=== PATIENT | female | born 1980 | race Caucasian/White ===

== ENCOUNTER 2016-09-21 08:43 | Emergency (ER) | payer BC ==
--- NOTE | 2016-09-21 09:13 | ER Document Report ---
ED General - General Chief Complaint: Nausea Stated Complaint: FLU SYMPTOMS Time Seen by Provider: 09/21/16 09:12 Mode of Arrival: Wheelchair Information source: Patient Notes: 35 yo female pregant, c/o nausea and vomiting. LMP 08/05/16. No vaginal discharge or odor. No dysuria frequency or urgency. No diarrhea. No pelvic or abdominal pain. No vaginal bleeding. - Related Data Allergies/Adverse Reactions: No Known Allergies Allergy (Unverified 09/21/16 09:45) Past Medical History - General Information source: Patient - Social History Smoking Status: Never Smoker Frequency of alcohol use: None Drug Abuse: None Lives with: Spouse/Significant other Family History: Reviewed & Not Pertinent - Medical History Medical History: Negative Renal/ Medical History: Denies: Hx Peritoneal Dialysis Surgical Hx: Negative Review of Systems - Review of Systems Constitutional: No symptoms reported EENT: No symptoms reported Cardiovascular: No symptoms reported Respiratory: No symptoms reported Gastrointestinal: See HPI Genitourinary: No symptoms reported Female Genitourinary: No symptoms reported Musculoskeletal: No symptoms reported Skin: No symptoms reported Hematologic/Lymphatic: No symptoms reported Neurological/Psychological: No symptoms reported Physical Exam - Vital signs Vitals: Temp Pulse Resp BP Pulse Ox 97.4 F 72 25 H 114/98 H 100 09/21/16 08:44 09/21/16 08:44 09/21/16 08:44 09/21/16 08:44 09/21/16 08:44 Interpretation: Normal - General General appearance: Appears well, Alert In distress: None - HEENT Head: Normocephalic, Atraumatic Eyes: Normal Conjunctiva: Normal Pupils: PERRL Mucous membranes: Dry Pharynx: Normal Neck: Supple. No: Lymphadenopathy - Respiratory Respiratory status: No respiratory distress Chest status: Nontender Breath sounds: Normal Chest palpation: Normal - Cardiovascular Rhythm: Regular Heart sounds: Normal auscultation Murmur: No - Abdominal Inspection: Normal Distension: No distension Bowel sounds: Normal Tenderness: Nontender. No: Tender Organomegaly: No organomegaly - Back Back: Normal, Nontender. No: CVA tenderness - Extremities General upper extremity: Normal inspection, Nontender, Normal color, Normal ROM , Normal temperature General lower extremity: Normal inspection, Nontender, Normal color, Normal ROM , Normal temperature, Normal weight bearing. No: Tao's sign - Neurological Neuro grossly intact: Yes Cognition: Normal Orientation: AAOx4 [place] Coma Scale Eye Opening: Spontaneous [place] Coma Scale Verbal: Oriented [place] Coma Scale Motor: Obeys Commands [place] Coma Scale Total: 15 Speech: Normal Motor strength normal: LUE, RUE, LLE, RLE Sensory: Normal - Psychological Associated symptoms: Normal affect, Normal mood - Skin Skin Temperature: Warm Skin Moisture: Dry Skin Color: Normal Skin irregularity: negative: Rash Course - Re-evaluation Re-evalutation: 09/21/16 11:30 Quantitative status is consistent with her LMP and expected 7 week . She has no pelvic pain or vaginal bleeding. Patient is drinking christine gayatri and feels a lot better. Other labs are negative except for co2 of 18 but she was hyperventilating when she came in. - Vital Signs Vital signs: Temp Pulse Resp BP Pulse Ox 97.8 F 72 23 H 98/61 L 99 09/21/16 11:51 09/21/16 08:44 09/21/16 10:31 09/21/16 11:51 09/21/16 11:51 - Laboratory Result Diagrams: 09/21/16 09:27 09/21/16 09:27 Laboratory results interpreted by me: 09/21/16 09/21/16 09/21/16 09:27 09:27 10:56 WBC 11.7 H Seg Neutrophils % 87.5 H Lymphocytes % 9.7 L Monocytes % 2.3 L Absolute Neutrophils 10.2 H Carbon Dioxide 18 L Calcium 10.5 H Direct Bilirubin 0.5 H Total Protein 8.4 H Beta HCG, Quant 76105.00 H Urine Glucose (UA) 50 H Urine Ketones 80 H Urine Ascorbic Acid 40 H Discharge - Discharge Clinical Impression: Nausea, early , Dehydration Condition: Good Disposition: HOME, SELF-CARE Instructions: Antinausea Medication ([facility]), Intravenous (IV) Fluids ([facility]), ([facility]), [facility] ([facility]), [facility] [place] Additional Instructions: plenty of fluids to er if worse continue to eat and drink even if you are nauseated see health department and obgyn for this . Please complete the patient satisfaction survey if you get one, and return it.. If you do not receive a survey, then you can go to the [facility] website, [email or web address] and place your comments about your very good care. Thank you very much. It was a pleasure being your medical provider today. Prescriptions: Doxylamine/Pyridoxine HCl [Kelsey Munoz 10-10 mg Tablet] 1 each PO QHS #30 tablet. Promethazine HCl [Phenergan 25 mg Supp.rect] 25 mg [place] Q4HP PRN #24 supp.rect PRN Reason: Promethazine HCl [Phenergan 25 mg Tablet] 25 mg PO Q4HP PRN #30 tablet PRN Reason: Forms: Return to Work
[2016-09-21] MEDS ORDERED: NORMAL SALINE 1000 ML 1,000 ML IV ONE ×3 (09:23→10:39)
[2016-09-21] MEDS ORDERED: DIPHENHYDRAMINE HCL 50 MG/ML VIAL IV ONE ×2 (09:23→09:47)
[2016-09-21] MEDS ORDERED: METOCLOPRAMIDE HCL INJ/PF 10 MG/2 ML SDV IV ONE (09:47)
[2016-09-21 09:49] LABS: ABSOLUTE LYMPHOCYTES (AUTO) 1.1 10^3/uL (0.5-4.7); ABSOLUTE MONOCYTES (AUTO) 0.3 10^3/uL (0.1-1.4); ABSOLUTE NEUT (AUTO) 10.2 10^3/uL (1.7-8.2); BASOPHILS % (AUTO) 0.3 % (0-2); EOSINOPHILS % (AUTO) 0.2 % (0-6); HEMATOCRIT 39.3 % (36.0-47.0); HEMOGLOBIN 13.5 g/dL (12.0-15.5); HGB HCT DIFFERENCE 1.2; LYMPHOCYTES % (AUTO) 9.7 % (13-45); MEAN CORPUSCULAR HEMOGLOBIN 30.2 pg (27.0-33.4); MEAN CORPUSCULAR HGB CONC 34.3 g/dL (32.0-36.0); MEAN CORPUSCULAR VOLUME 88 fl (80-97); MONOCYTES % (AUTO) 2.3 % (3-13); RED BLOOD COUNT 4.45 10^6/uL (3.72-5.28); SEGMENTED NEUTROPHILS % (AUTO) 87.5 % (42-78); WHITE BLOOD COUNT 11.7 10^3/uL (4.0-10.5)
[2016-09-21 10:08] LABS: ALANINE AMINOTRANSFERASE 34 U/L (9-52); ALKALINE PHOSPHATASE 48 U/L (38-126); ANION GAP 14 (5-19); ASPARTATE AMINO TRANSFERASE 29 U/L (14-36); BILIRUBIN,DIRECT 0.5 mg/dL (0.0-0.4); BLOOD UREA NITROGEN 10 mg/dL (7-20); CALCIUM 10.5 mg/dL (8.4-10.2); CARBON DIOXIDE 18 mmol/L (22-30); CHLORIDE 107 mmol/L (98-107); CREATININE RESULT 0.53 mg/dL (0.52-1.25); GLUCOSE 101 mg/dL (75-110); LIPASE 76.5 U/L (23-300); SODIUM 139.4 mmol/L (137-145); TOTAL PROTEIN 8.4 g/dL (6.3-8.2)
[2016-09-21 11:10] LABS: APPEARANCE,URINE CLEAR; BILIRUBIN,URINE NEGATIVE (NEGATIVE); GLUCOSE, URINE 50 mg/dL (NEGATIVE); KETONES,URINE 80 mg/dL (NEGATIVE); LEUKOCYTE ESTERASE,URINE NEGATIVE (NEGATIVE); NITRITE,URINE NEGATIVE (NEGATIVE); PROTEIN,URINE NEGATIVE (NEGATIVE); URINE SPECIFIC GRAVITY 1.014; UROBILINOGEN,URINE NEGATIVE mg/dL (<2.0)
[2016-09-21 11:30] LABS: URINE BARBITURATES SCREEN NEGATIVE; URINE METHADONE SCREEN NEGATIVE; URINE OPIATES LOW NEGATIVE; URINE PHENCYCLIDINE SCREEN NEGATIVE
[2016-09-21 12:18] VITALS: BP 98/61
== END 2016-09-21 11:55 | disposition home or self-care (01) ==
LOC: ER 08:43
DX: O26.891 Other specified pregnancy related conditions, first trimester (principal); O21.9 Vomiting of pregnancy, unspecified; O99.281 Endocrine, nutritional and metabolic diseases complicating pregnancy, first trimester; E86.0 Dehydration; Z3A.01 Less than 8 weeks gestation of pregnancy
CPT/HCPCS: 99283; 96374; 96375; 36415; 87086; 80307 ×2; 84702; 83690; 85025; 80053; 81001; 87804; 71020; J1200; J2765; J7030

== ENCOUNTER 2016-10-20 09:09 | Observation (INO) | payer BC ==
[2016-10-20] MEDS: ONDANSETRON 4 MG TAB.RAPDIS PO PRN (12:10)
[2016-10-20] MEDS ORDERED: METOCLOPRAMIDE HCL INJ/PF 10 MG/2 ML SDV IV PRN ×2 (13:59→14:03)
[2016-10-20] MEDS: NORMAL SALINE 1000 ML 1,000 ML with THIAMINE HCL 100 MG, MVI, ADULT NO.1 WITH VIT K 10 ... IV SCH ×5 (17:21)
--- NOTE | 2016-10-20 17:36 | RADIOLOGY REPORT (SQ) ---
EXAM DESCRIPTION: U/S ABDOMEN LTD W/DOPPLER COMPLETED DATE/TIME: 10/20/2016 5:25 pm REASON FOR STUDY: right upper quadrant pain COMPARISON: None. TECHNIQUE: Dynamic and static grayscale images acquired of the abdomen and recorded on PACS. Additio nal selected color Doppler and spectral images recorded. LIMITATIONS: None. FINDINGS: PANCREAS: No masses. Visualized pancreatic duct normal caliber. LIVER: No masses. Echotexture normal. LIVER VASCULATURE: Normal directional flow of the main portal vein and hepatic veins. GALLBLADDER: No stones. Normal wall thickness. No pericholecystic fluid. ULTRASOUND-DETECTED GRAF'S SIGN: Negative. INTRAHEPATIC DUCTS AND COMMON DUCT: CBD and intrahepatic ducts normal caliber. No filling defects. INFERIOR VENA CAVA: Normal flow. AORTA: No aneurysm. RIGHT KIDNEY: Normal size. Normal echogenicity. No solid or suspicious masses. No hydronephrosis. No calcifications. PERITONEAL AND RIGHT PLEURAL SPACE: No ascites or effusions. OTHER: No other significant findings. IMPRESSION: NORMAL RIGHT UPPER QUADRANT ULTRASOUND. TECHNICAL DOCUMENTATION: JOB ID: [id number] [employer]- All Rights Reserved
[2016-10-20 17:42] LABS: ABSOLUTE BASOPHILS # (AUTO) 0.1 10^3/uL (0.0-0.2); ABSOLUTE EOSINOPHILS # (AUTO) 0.1 10^3/uL (0.0-0.6); ABSOLUTE LYMPHOCYTES (AUTO) 3.1 10^3/uL (0.5-4.7); ABSOLUTE MONOCYTES (AUTO) 0.8 10^3/uL (0.1-1.4); ABSOLUTE NEUT (AUTO) 8.7 10^3/uL (1.7-8.2); BASOPHILS % (AUTO) 0.5 % (0-2); EOSINOPHILS % (AUTO) 0.5 % (0-6); HEMATOCRIT 40.1 % (36.0-47.0); HEMOGLOBIN 13.5 g/dL (12.0-15.5); HGB HCT DIFFERENCE 0.4; LYMPHOCYTES % (AUTO) 24.7 % (13-45); MEAN CORPUSCULAR HEMOGLOBIN 30.4 pg (27.0-33.4); MEAN CORPUSCULAR HGB CONC 33.6 g/dL (32.0-36.0); MEAN CORPUSCULAR VOLUME 90 fl (80-97); RED BLOOD COUNT 4.43 10^6/uL (3.72-5.28); RED CELL DISTRIBUTION WIDTH 13.1 % (11.5-14.0); SEGMENTED NEUTROPHILS % (AUTO) 68.3 % (42-78); WHITE BLOOD COUNT 12.7 10^3/uL (4.0-10.5)
[2016-10-20 18:01] LABS: ALANINE AMINOTRANSFERASE 31 U/L (9-52); ALBUMIN 3.9 g/dL (3.5-5.0); ALKALINE PHOSPHATASE 36 U/L (38-126); AMYLASE 42 U/L (30-110); ANION GAP 11 (5-19); ASPARTATE AMINO TRANSFERASE 20 U/L (14-36); BILIRUBIN,DIRECT 0.2 mg/dL (0.0-0.4); BILIRUBIN,TOTAL 0.9 mg/dL (0.2-1.3); BLOOD UREA NITROGEN 6 mg/dL (7-20); CALCIUM 9.5 mg/dL (8.4-10.2); CARBON DIOXIDE 23 mmol/L (22-30); CHLORIDE 100 mmol/L (98-107); CREATININE RESULT 0.55 mg/dL (0.52-1.25); GLUCOSE 74 mg/dL (75-110); POTASSIUM 4.1 mmol/L (3.6-5.0); SODIUM 133.5 mmol/L (137-145); TOTAL PROTEIN 6.3 g/dL (6.3-8.2)
[2016-10-20] MEDS ORDERED: PYRIDOXINE HCL PO SCH (22:00)
[2016-10-20] MEDS ORDERED: DOXYLAMINE PO SCH (22:00)
[2016-10-20] MEDS: FAMOTIDINE 20 MG TABLET PO SCH (22:47)
[2016-10-20] MEDS: ZOLPIDEM TARTRATE 5 MG TABLET PO PRN (22:48)
[2016-10-21] MEDS: FAMOTIDINE 20 MG TABLET PO SCH ×2 (09:35→21:30)
--- NOTE | 2016-10-21 09:50 | PDOC PROGRESS REPORT ---
Subjective-OB Subjective: Post Delivery Day: 35 year old. Denies any needs at this time. Feeling great today-ready to go home if can retain oral feeding. Physical Exam (OB) Vital Signs: Temp Pulse Resp BP Pulse Ox 98.2 F 97 15 96/55 L 100 10/21/16 08:07 10/21/16 08:07 10/21/16 08:07 10/21/16 08:07 10/21/16 08:07 Intake & Output 10/20/16 10/21/16 10/22/16 06:59 06:59 06:59 Intake Total 2900 Output Total 1380 Balance 1520 Weight 48 kg - Abdomen Description: Soft Hernia Present: No Bowel Sounds: Normoactive Flatus Presence: Present Stool: No Abdomen Note: FHR 169. Objective-Diagnostic Laboratory: 10/20/16 17:35 10/20/16 17:35 10/20/16 10/20/16 17:35 17:35 WBC 12.7 H RBC 4.43 Hgb 13.5 Hct 40.1 MCV 90 MCH 30.4 MCHC 33.6 RDW 13.1 Plt Count 296 Seg Neutrophils % 68.3 Lymphocytes % 24.7 Monocytes % 6.0 Eosinophils % 0.5 Basophils % 0.5 Absolute Neutrophils 8.7 H Absolute Lymphocytes 3.1 Absolute Monocytes 0.8 Absolute Eosinophils 0.1 Absolute Basophils 0.1 Sodium 133.5 L Potassium 4.1 Chloride 100 Carbon Dioxide 23 Anion Gap 11 BUN 6 L Creatinine 0.55 Est GFR ( Amer) > 60 Est GFR (Non-Af Amer) > 60 Glucose 74 L Calcium 9.5 Total Bilirubin 0.9 AST 20 ALT 31 Alkaline Phosphatase 36 L Total Protein 6.3 Albumin 3.9 Amylase 42 Lipase 70.0
--- NOTE | 2016-10-21 09:56 | PDOC DISCHARGE SUMMARY ---
Final Diagnosis Discharge Date: 10/21/16 Discharge Data - Discharge Medication Home Medications: Doxylamine/Pyridoxine HCl [Kelsey Munoz 10-10 mg Tablet] 1 each PO QHS #30 tablet. 09/21/16 Promethazine HCl [Phenergan 25 mg Supp.rect] 25 mg [place] Q4HP PRN #24 supp.rect Promethazine HCl [Phenergan 25 mg Tablet] 25 mg PO Q4HP PRN #30 tablet 09/21/16 Pnv No.122/Iron/Folic Acid [ Multi Tablet] 1 tab PO DAILY 10/20/16 Ondansetron [Zofran Odt 4 mg Tablet] 8 mg PO Q8HP PRN #20 tab.rapdis 10/21/16 Gestational Age: 11 wks Reason(s) for Admission: Other Admission Note: Hyperemesis gravidarum Procedures: Ultrasound - Diagnosis Test Laboratory: Temp Pulse Resp BP Pulse Ox 98.2 F 97 15 96/55 L 100 10/21/16 08:07 10/21/16 08:07 10/21/16 08:07 10/21/16 08:07 10/21/16 08:07 10/20/16 17:35 RBC 4.43 Hgb 13.5 Hct 40.1 - Discharge information/Instructions Discharge Activity: Activity As Tolerated, Balance Activity w/Rest, Slowly Increase Activity Discharge Diet: Regular Disposition: HOME, SELF-CARE Follow up with: [facility] in: 1, Weeks
[2016-10-21] MEDS: ONDANSETRON 4 MG TAB.RAPDIS PO PRN (11:16)
[2016-10-21] MEDS: RINGERS SOLUTION,LACTATED 1,000 ML IV PRN ×2 (13:57→22:29)
[2016-10-21] MEDS: NORMAL SALINE 1000 ML 1,000 ML with THIAMINE HCL 100 MG, MVI, ADULT NO.1 WITH VIT K 10 ... IV SCH ×5 (18:00)
[2016-10-21] MEDS: ZOLPIDEM TARTRATE 5 MG TABLET PO PRN (21:30)
[2016-10-22] MEDS: RINGERS SOLUTION,LACTATED 1,000 ML IV PRN (06:21)
[2016-10-22 08:04] VITALS: BP 109/70
--- NOTE | 2016-10-22 08:48 | PDOC PROGRESS REPORT ---
Subjective-OB Subjective: Post Delivery Day: 35 year old. Denies any needs at this time feeling better, walking in halls, eating well, no nausea Physical Exam (OB) Vital Signs: Temp Pulse Resp BP Pulse Ox 97.8 F 73 18 109/70 100 10/22/16 07:28 10/22/16 07:28 10/22/16 07:28 10/22/16 07:28 10/22/16 07:28 Intake & Output 10/21/16 10/22/16 10/23/16 06:59 06:59 06:59 Intake Total 2900 850 Output Total 1380 4072 Balance 1520 -3222 Weight 48 kg 49.9 kg - Abdomen Description: Soft Hernia Present: No Objective-Diagnostic Laboratory: 10/20/16 17:35 10/20/16 17:35 Assessment and Plan(PN) - Assessment and Plan (1) Hyperemesis complicating , antepartum Is this a current diagnosis for this admission?: Yes - Time Spent with Patient Time with patient: Less than 15 minutes Medications reviewed and adjusted accordingly: Yes - Disposition Anticipated Discharge: Home Within: Other - home today
--- NOTE | 2016-10-22 08:49 | PDOC DISCHARGE SUMMARY ---
Final Diagnosis Discharge Date: 10/22/16 - Final Diagnosis (1) Hyperemesis complicating , antepartum Is this a current diagnosis for this admission?: Yes Discharge Data - Discharge Medication Home Medications: Doxylamine/Pyridoxine HCl [Kelsey Munoz 10-10 mg Tablet] 1 each PO QHS #30 tablet. 09/21/16 Promethazine HCl [Phenergan 25 mg Supp.rect] 25 mg [place] Q4HP PRN #24 supp.rect Promethazine HCl [Phenergan 25 mg Tablet] 25 mg PO Q4HP PRN #30 tablet 09/21/16 Pnv No.122/Iron/Folic Acid [ Multi Tablet] 1 tab PO DAILY 10/20/16 Ondansetron [Zofran Odt 4 mg Tablet] 8 mg PO Q8HP PRN #20 tab.rapdis 10/21/16 - Diagnosis Test Laboratory: Temp Pulse Resp BP Pulse Ox 97.8 F 73 18 109/70 100 10/22/16 07:28 10/22/16 07:28 10/22/16 07:28 10/22/16 07:28 10/22/16 07:28 10/20/16 17:35 RBC 4.43 Hgb 13.5 Hct 40.1 - Discharge information/Instructions Discharge Activity: Activity As Tolerated, Balance Activity w/Rest, Slowly Increase Activity Discharge Diet: As Tolerated, Regular Disposition: HOME, SELF-CARE Follow up with: [facility] in: 1, Weeks
[2016-10-22] MEDS: FAMOTIDINE 20 MG TABLET PO SCH (09:18)
== END 2016-10-22 09:28 | disposition home or self-care (01) ==
LOC: 2S 09:09
PROVIDERS: ADMIT Student in an Organized Health Care Education/Training Program; ATTEND Student in an Organized Health Care Education/Training Program
DX: O21.0 Mild hyperemesis gravidarum (principal); Z3A.11 11 weeks gestation of pregnancy
CPT/HCPCS: 36415; 82150; 83690; 85025; 80053; 76705; 93976; G0378 ×3; G0379; S0119 ×2; J3490 ×4; J2765 ×2; J3411 ×2; J7030 ×2; J7120 ×2

== ENCOUNTER 2017-01-26 00:36 | Observation (INO) | payer BC ==
[2017-01-26 01:10] LABS: APPEARANCE,URINE CLOUDY; BILIRUBIN,URINE NEGATIVE (NEGATIVE); GLUCOSE, URINE 50 mg/dL (NEGATIVE); KETONES,URINE 80 mg/dL (NEGATIVE); LEUKOCYTE ESTERASE,URINE NEGATIVE (NEGATIVE); NITRITE,URINE NEGATIVE (NEGATIVE); PROTEIN,URINE 100 mg/dL (NEGATIVE); URINE SPECIFIC GRAVITY 1.038; UROBILINOGEN,URINE NEGATIVE mg/dL (<2.0)
[2017-01-26] MEDS ORDERED: RINGERS SOLUTION,LACTATED 1,000 ML IV PRN (01:15)
[2017-01-26] MEDS ORDERED: ONDANSETRON HCL INJ/PF 4 MG/2 ML SDV IV ONE (01:21)
[2017-01-26] MEDS ORDERED: DEXTROSE 5%-LACTATED RINGERS 1,000 ML IV PRN (01:22)
[2017-01-26] MEDS ORDERED: ONDANSETRON HCL INJ/PF 4 MG/2 ML SDV ONE (01:27)
[2017-01-26 01:44] LABS: URINE BARBITURATES SCREEN NEGATIVE; URINE METHADONE SCREEN NEGATIVE; URINE OPIATES LOW NEGATIVE; URINE PHENCYCLIDINE SCREEN NEGATIVE
[2017-01-26 01:50] LABS: ABSOLUTE LYMPHOCYTES (AUTO) 1.2 10^3/uL (0.5-4.7); ABSOLUTE MONOCYTES (AUTO) 0.5 10^3/uL (0.1-1.4); ABSOLUTE NEUT (AUTO) 17.4 10^3/uL (1.7-8.2); BASOPHILS % (AUTO) 0.2 % (0-2); HEMOGLOBIN 11.8 g/dL (12.0-15.5); HGB HCT DIFFERENCE 1.4; LYMPHOCYTES % (AUTO) 6.5 % (13-45); MEAN CORPUSCULAR HGB CONC 34.6 g/dL (32.0-36.0); MEAN CORPUSCULAR VOLUME 90 fl (80-97); MONOCYTES % (AUTO) 2.8 % (3-13); RED CELL DISTRIBUTION WIDTH 12.5 % (11.5-14.0); SEGMENTED NEUTROPHILS % (AUTO) 90.5 % (42-78); WHITE BLOOD COUNT 19.2 10^3/uL (4.0-10.5)
[2017-01-26] MEDS ORDERED: DEXTROSE 5%-1/2 NORMAL SALINE 1,000 ML with POTASSIUM CHLORIDE 40 MEQ IV PRN ×2 (03:59)
[2017-01-26] MEDS ORDERED: LANSOPRAZOLE 30 MG TAB.RAP.DR ONE (04:03)
[2017-01-26] MEDS ORDERED: LANSOPRAZOLE 30 MG TAB.RAP.DR PO ONE (04:05)
[2017-01-26] MEDS ORDERED: ONDANSETRON HCL INJ/PF 4 MG/2 ML SDV IV PRN (04:07)
[2017-01-26 05:49] LABS: CHLAM PCR NOT DETECTED (NOT DETECT)
[2017-01-26] MEDS ORDERED: POTASSI CL 40 MEQ/D5-1/2NS 1L 1000 ML IV PRN (08:16)
[2017-01-26 11:54] LABS: HEMATOCRIT 31.1 % (36.0-47.0); HEMOGLOBIN 10.8 g/dL (12.0-15.5); HGB HCT DIFFERENCE 1.3; MEAN CORPUSCULAR HEMOGLOBIN 30.8 pg (27.0-33.4); MEAN CORPUSCULAR HGB CONC 34.5 g/dL (32.0-36.0); MEAN CORPUSCULAR VOLUME 89 fl (80-97); RED BLOOD COUNT 3.49 10^6/uL (3.72-5.28); RED CELL DISTRIBUTION WIDTH 12.3 % (11.5-14.0); WHITE BLOOD COUNT 20.4 10^3/uL (4.0-10.5)
[2017-01-26 12:18] LABS: ALANINE AMINOTRANSFERASE 20 U/L (9-52); ALBUMIN 3.1 g/dL (3.5-5.0); ALKALINE PHOSPHATASE 40 U/L (38-126); ANION GAP 8 (5-19); ASPARTATE AMINO TRANSFERASE 20 U/L (14-36); BAND NEUTROPHILS % (MANUAL) 2 % (3-5); BASOPHILS % (MANUAL) 0 % (0-2); BILIRUBIN,DIRECT 0.3 mg/dL (0.0-0.4); BILIRUBIN,TOTAL 0.6 mg/dL (0.2-1.3); BLOOD UREA NITROGEN 6 mg/dL (7-20); CALCIUM 8.7 mg/dL (8.4-10.2); CARBON DIOXIDE 20 mmol/L (22-30); CHLORIDE 106 mmol/L (98-107); CREATININE RESULT 0.46 mg/dL (0.52-1.25); EOSINOPHILS % (MANUAL) 0 % (0-6); GLUCOSE 125 mg/dL (75-110); LYMPHOCYTES % (MANUAL) 8 % (13-45); POTASSIUM 3.7 mmol/L (3.6-5.0); SODIUM 133.9 mmol/L (137-145); TOTAL CELLS COUNTED 100; TOTAL PROTEIN 5.5 g/dL (6.3-8.2)
[2017-01-26 12:19] LABS: POLYCHROMASIA SLIGHT
[2017-01-26 12:25] LABS: TOXIC GRANULATION SLIGHT
[2017-01-26 16:09] VITALS: BP 105/67
--- NOTE | 2017-01-26 16:37 | PDOC DISCHARGE SUMMARY ---
General - Admit/Disc Date/PCP Admission Date/Primary Care Provider: 01/26/17 05:28 SALENA CARDOSO MD Discharge Date: 01/26/17 - Discharge Diagnosis (1) Gastroenteritis Is this a current diagnosis for this admission?: Yes (2) Leukocytosis, unspecified Is this a current diagnosis for this admission?: Yes (3) Is this a current diagnosis for this admission?: Yes (4) Hyperemesis complicating , antepartum Is this a current diagnosis for this admission?: Yes - Additional Information Home Medications: No122/Iron/Folic Acid [ Multi Tablet] 1 tab PO DAILY 10/20/16 Ondansetron [Zofran Odt 4 mg Tablet] 8 mg PO Q8HP PRN #20 tab.rapdis 10/21/16 History of Present Illness History of Present Illness: JOHN LOZANO is a 36 year old female Hospital Course Hospital Course: pt's WBC has remained elevated but stable. Clinically feeling better after IV Fluids and antiemetics. She denies dysuria or URI signs/symptoms. Is tolerating small amounts of PO Physical Exam - Physical Exam Vital Signs: Temp Pulse Resp BP Pulse Ox 98.4 F 75 18 105/67 100 01/26/17 15:00 01/26/17 15:00 01/26/17 15:00 01/26/17 15:00 01/26/17 15:00 Intake & Output 01/25/17 01/26/17 01/27/17 06:59 06:59 06:59 Weight 63.004 kg General appearance: PRESENT: no acute distress, cooperative GI/Abdominal exam: PRESENT: soft - abdomen nontender, - Obstetrical Exam Fundal Height: u/u - u/2 Tender: No Result Laboratory Results: 01/26/17 11:45 01/26/17 11:45 01/26/17 01/26/17 01/26/17 00:49 01:39 11:45 WBC 19.2 H 20.4 H RBC 3.80 3.49 L Hgb 11.8 L 10.8 L Hct 34.0 L 31.1 L MCV 90 89 MCH 31.0 30.8 MCHC 34.6 34.5 RDW 12.5 12.3 Plt Count 248 276 Seg Neutrophils % 90.5 H Not Reportable Lymphocytes % 6.5 L Not Reportable Monocytes % 2.8 L Not Reportable Eosinophils % 0.0 Not Reportable Basophils % 0.2 Not Reportable Absolute Neutrophils 17.4 H Not Reportable Absolute Lymphocytes 1.2 Not Reportable Absolute Monocytes 0.5 Not Reportable Absolute Eosinophils 0.0 Not Reportable Absolute Basophils 0.0 Not Reportable Sodium Potassium Chloride Carbon Dioxide Anion Gap BUN Creatinine Est GFR ( Amer) Est GFR (Non-Af Amer) Glucose Calcium Total Bilirubin AST ALT Alkaline Phosphatase Total Protein Albumin Urine Color YELLOW Urine Appearance CLOUDY Urine pH 5.0 Ur Specific [place] 1.038 Urine Protein 100 H Urine Glucose (UA) 50 H Urine Ketones 80 H Urine Blood NEGATIVE Urine Nitrite NEGATIVE Ur Leukocyte Esterase NEGATIVE Urine WBC (Auto) 7 Urine RBC (Auto) 1 01/26/17 11:45 WBC RBC Hgb Hct MCV MCH MCHC RDW Plt Count Seg Neutrophils % Lymphocytes % Monocytes % Eosinophils % Basophils % Absolute Neutrophils Absolute Lymphocytes Absolute Monocytes Absolute Eosinophils Absolute Basophils Sodium 133.9 L Potassium 3.7 Chloride 106 Carbon Dioxide 20 L Anion Gap 8 BUN 6 L Creatinine 0.46 L Est GFR ( Amer) > 60 Est GFR (Non-Af Amer) > 60 Glucose 125 H Calcium 8.7 Total Bilirubin 0.6 AST 20 ALT 20 Alkaline Phosphatase 40 Total Protein 5.5 L Albumin 3.1 L Urine Color Urine Appearance Urine pH Ur Specific [place] Urine Protein Urine Glucose (UA) Urine Ketones Urine Blood Urine Nitrite Ur Leukocyte Esterase Urine WBC (Auto) Urine RBC (Auto) Plan Discharge Plan: discharge home with strict precautions. Has appointment next week with [facility]. Will repeat CBC at that appointment. Time Spent: Less than 30 Minutes
--- NOTE | 2017-01-28 11:42 | Admission Physical ---
Datetime Report Generated by CPN: 01/28/2017 11:41 CURRENT ADMISSION Hx Assessment: The History has been Reviewed and is Current Chief Complaint Other: abd pain nausea and vomitng-started after eating out voer 24 hr ago Admit Plan: Observation/Evaluation ALLERGIES Medication Allergies: No Medication Allergies: No Known Allergies (01/26/2017) Medication Allergies: No Known Allergies (09/21/2016) Latex: No Latex Allergies OBSTETRICAL HISTORY EDC: 05/12/2017 00:00 : 3 Para: 1 Term: 1 : 0 SAB: 1 IAB: 0 Ectopic: 0 Livin Cesareans: 1 VBACs: 0 Multiple Births: 0 Gestational Diabetes: No Rh Sensitization: No Incompetent Cervix: No ELMER: No Infertility: No ART Treatment: No Uterine Anomaly: No IUGR: No Hx Previous C/S: Yes Macrosomia: No Hx Loss/Stillborn: No PIH: No Hx : No Placenta Previa/Abruption: No Depression/PP Depression: No PTL/PROM: No Post Hemorrhage: No Current Procedures: Ultrasound; NST Obstetrical History Comments: G1 - 2001 40 weeks 7 lb 11 oz G2 - SAB G3 - current SEE RECORDS Alcohol: No Marijuana : No Cocaine: No Other Illicit Drugs: No Cigarettes: Never Smoker. [id number] MEDICAL HISTORY Diabetes: No Blood Transfusion: No Pulmonary Disease (Asthma, TB): No Breast Disease: No Hypertension: No Outpatient Clerk Surgery: No Heart Disease: No Hosp/Surgery: Yes Autoimmune Disorder: No Anesthetic Complications: No Kidney Disease: No Abnormal Pap Smear: No Neuro/Epilepsy: No Psychiatric Disorders: No Other Medical Diseases: No Hepatitis/Liver Disease: No Significant Family History: No Varicosities/Phlebitis: No Trauma/Violence : No Thyroid Dysfunction: No Medical History Comments: hyperemesis, back surgery, LEAP procedure INFECTIOUS HISTORY Gonorrhea: No Genital Herpes: No Chlamydia: No Tuberculosis: No Syphilis: No Hepatitis: No HIV/AIDS Exposure: No Rash or Viral Illness: No HPV: Yes PHYSICAL EXAM General: Normal HEENT: Normal Neurologic: Normal Thyroid: Normal Heart: Normal Lungs: Normal Breast: Normal Back: Normal Abdomen: Normal Genitourinary Exam: Normal Extremities: Normal DTRs: Normal Pelvic Type: Adequate Physical Exam Comments: UA-dehydrated with ketones cbc with wbc of 19k abd nontender after 2 liters ivfs-pt describes round lig pain FHT initially 170s,now 160s rare ctx FETUS A Admit Comment: iup at 24 + wks with h/o , now with suspected food poisoning... nausea, vomiting and dehydration -23 hr obs for hydration and will repeat cbc given leukocytosis on arrival...check cmp with repeat labs and check UA for gc/chlam, trial of diet in am PLANS FOR LABOR AND DELIVERY Labor and Delivery: None Pain Management: Spinal Feeding Preference: Breast Circumcision: N/A INFORMED CONSENT Signature: with User ID: [email or web address]
== END 2017-01-26 17:20 | disposition home or self-care (01) ==
LOC: LC 00:36 → LR 05:28 → 2N 07:00
PROVIDERS: ADMIT Specialist; ATTEND Specialist
PROC: 4A0HXCZ Measurement of Products of Conception, Cardiac Rate, External Approach (ICD-10-PCS; principal; 2017-01-26)
DX: O99.612 Diseases of the digestive system complicating pregnancy, second trimester (principal); K52.9 Noninfective gastroenteritis and colitis, unspecified; O99.112 Other diseases of the blood and blood-forming organs and certain disorders involving the immune mechanism complicating pregnancy, second trimester; D72.829 Elevated white blood cell count, unspecified; O21.1 Hyperemesis gravidarum with metabolic disturbance; Z3A.24 24 weeks gestation of pregnancy; Z98.890 Other specified postprocedural states
CPT/HCPCS: 94760; 36415; 87086; 85025; 80053; 81001; 80307; 87491; 87591; 59025; G0378; G0379; G0480 ×2; J3480; J2405

== ENCOUNTER 2017-04-07 08:22 | Outpatient (CLI) | payer BC ==
[2017-04-07 09:04] LABS: APPEARANCE,URINE CLEAR; BILIRUBIN,URINE NEGATIVE (NEGATIVE); GLUCOSE, URINE NEGATIVE (NEGATIVE); KETONES,URINE NEGATIVE (NEGATIVE); LEUKOCYTE ESTERASE,URINE NEGATIVE (NEGATIVE); NITRITE,URINE NEGATIVE (NEGATIVE); PROTEIN,URINE NEGATIVE (NEGATIVE); URINE SPECIFIC GRAVITY 1.001; UROBILINOGEN,URINE NEGATIVE mg/dL (<2.0)
[2017-04-07 09:19] LABS: URINE BARBITURATES SCREEN NEGATIVE; URINE METHADONE SCREEN NEGATIVE; URINE OPIATES LOW NEGATIVE; URINE PHENCYCLIDINE SCREEN NEGATIVE
== END 2017-04-07 10:25 | disposition home or self-care (01) ==
LOC: LC 08:22
PROVIDERS: ATTEND Obstetrics & Gynecology
PROC: 4A1HXCZ Monitoring of Products of Conception, Cardiac Rate, External Approach (ICD-10-PCS; principal; 2017-04-07)
DX: O47.03 False labor before 37 completed weeks of gestation, third trimester (principal); Z3A.35 35 weeks gestation of pregnancy
CPT/HCPCS: 59025; 81001; 80307; G0480 ×2

== ENCOUNTER 2017-04-27 15:11 | Outpatient (CLI) | payer BC ==
--- NOTE | 2017-04-27 15:21 | Non Stress Test Report ---
Non Stress Test Datetime Report Generated by CPN: 04/27/2017 15:21 DEMOGRAPHIC EGA NST: 35.0 INDICATION Indication for Study: labor; Other Indication for Study (NST) Other: LABOR CHECK MONITORING Monitor Explained: Monitor Explained; Test Explained; Patient Verbalized Understanding Time on Monitor: 04/07/2017 08:37 Time off Monitor: 04/07/2017 10:13 NST Duration: 96 NST INTERVENTIONS NST Interventions: PO Hydration; Reposition Patient Physician Notified NST: A Lara CNM BABY A: [id number] BABY A Movement : Present Contraction Frequency : IRREG WITH IRRITABILITY FHR Baseline : 135 Accelerations : 15X15 Decelerations : None Variability : Moderate 6-25bpm NST Review: Meets Criteria for Reactive NST NST Review and Verified By : Fransisco Cordon RNC NST Results: Reactive NST REPORT Report Trigger: Send Report
[2017-04-27 16:24] LABS: APPEARANCE,URINE SLIGHTLY-CLOUDY; BILIRUBIN,URINE NEGATIVE (NEGATIVE); GLUCOSE, URINE NEGATIVE (NEGATIVE); KETONES,URINE NEGATIVE (NEGATIVE); LEUKOCYTE ESTERASE,URINE NEGATIVE (NEGATIVE); NITRITE,URINE NEGATIVE (NEGATIVE); PROTEIN,URINE NEGATIVE (NEGATIVE); URINE SPECIFIC GRAVITY 1.008; UROBILINOGEN,URINE NEGATIVE mg/dL (<2.0)
[2017-04-27] MEDS ORDERED: HYDROXYZINE PAMOATE 50 MG CAPSULE PO ONE (16:38)
[2017-04-27] MEDS ORDERED: HYDROXYZINE PAMOATE 50 MG CAPSULE ONE (16:45)
[2017-04-27 16:59] LABS: URINE BARBITURATES SCREEN NEGATIVE; URINE METHADONE SCREEN NEGATIVE; URINE OPIATES LOW NEGATIVE; URINE PHENCYCLIDINE SCREEN NEGATIVE
--- NOTE | 2017-04-27 17:07 | Non Stress Test Report ---
Non Stress Test Datetime Report Generated by CPN: 04/27/2017 17:06 DEMOGRAPHIC EGA NST: 37.6 INDICATION Indication for Study: Ordered by Provider VITAL SIGNS Temperature - NST: 98.6 Pulse - NST: 88 RESP - NST: 15 NBPSYS NST: 99 NBPDIA NST: 54 MONITORING Time on Monitor: 04/27/2017 15:23 Time off Monitor: 04/27/2017 16:55 NST Duration: 92 NST INTERVENTIONS Physician Notified NST: J Degroot CNM BABY A Movement : Present Contraction Frequency : occas FHR Baseline : 135 Accelerations : 15X15 Decelerations : None Variability : Moderate 6-25bpm NST Review: Meets Criteria for Reactive NST NST Review and Verified By : Rosa Monterroso RN NST Results: Reactive NST REPORT Report Trigger: Send Report
== END 2017-04-27 16:55 | disposition home or self-care (01) ==
LOC: LC 15:11
PROVIDERS: ATTEND Obstetrics & Gynecology
PROC: 4A1HXCZ Monitoring of Products of Conception, Cardiac Rate, External Approach (ICD-10-PCS; principal; 2017-04-27)
DX: O47.1 False labor at or after 37 completed weeks of gestation (principal); Z3A.37 37 weeks gestation of pregnancy
CPT/HCPCS: 59025; 80307; 81005

== ENCOUNTER 2017-05-06 05:06 | Inpatient (IN) | payer BC ==
[2017-05-05 11:27] LABS: ABSOLUTE BASOPHILS # (AUTO) 0.1 10^3/uL (0.0-0.2); ABSOLUTE EOSINOPHILS # (AUTO) 0.1 10^3/uL (0.0-0.6); ABSOLUTE LYMPHOCYTES (AUTO) 2.2 10^3/uL (0.5-4.7); ABSOLUTE MONOCYTES (AUTO) 0.8 10^3/uL (0.1-1.4); ABSOLUTE NEUT (AUTO) 9.8 10^3/uL (1.7-8.2); BASOPHILS % (AUTO) 0.4 % (0-2); EOSINOPHILS % (AUTO) 0.7 % (0-6); HEMATOCRIT 38.1 % (36.0-47.0); HEMOGLOBIN 12.6 g/dL (12.0-15.5); LYMPHOCYTES % (AUTO) 17.2 % (13-45); MEAN CORPUSCULAR HEMOGLOBIN 29.1 pg (27.0-33.4); MEAN CORPUSCULAR HGB CONC 33.2 g/dL (32.0-36.0); MEAN CORPUSCULAR VOLUME 88 fl (80-97); MONOCYTES % (AUTO) 6.2 % (3-13); PLATELET COUNT 311 10^3/uL (150-450); RED BLOOD COUNT 4.35 10^6/uL (3.72-5.28); RED CELL DISTRIBUTION WIDTH 13.5 % (11.5-14.0); SEGMENTED NEUTROPHILS % (AUTO) 75.5 % (42-78); TOTAL CELLS COUNTED % (AUTO) 100 %
[2017-05-05 11:28] LABS: AMORPHOUS SEDIMENT,URINE TRACE /HPF; APPEARANCE,URINE SLIGHTLY-CLOUDY; BILIRUBIN,URINE NEGATIVE (NEGATIVE); COLOR,URINE YELLOW; GLUCOSE, URINE NEGATIVE (NEGATIVE); KETONES,URINE NEGATIVE (NEGATIVE); LEUKOCYTE ESTERASE,URINE TRACE (NEGATIVE); NITRITE,URINE NEGATIVE (NEGATIVE); PROTEIN,URINE NEGATIVE (NEGATIVE); URINE SPECIFIC GRAVITY 1.004; UROBILINOGEN,URINE NEGATIVE mg/dL (<2.0)
[2017-05-05 11:43] LABS: URINE AMPHETAMINES SCREEN NEGATIVE; URINE BARBITURATES SCREEN NEGATIVE; URINE COCAINE SCREEN NEGATIVE; URINE MARIJUANA (THC) SCREEN NEGATIVE; URINE METHADONE SCREEN NEGATIVE; URINE PHENCYCLIDINE SCREEN NEGATIVE
[2017-05-05 11:47] LABS: URINE BENZODIAZEPINES SCREEN NEGATIVE
[~2017-05-06 05:06] MED LIST: CEFAZOLIN 1 GM/D5W RTU 1 GM/50 ML RTUPB IV PRN; LACTATED RINGERS 1000 ML IV PRN; LIDOCAINE 0.5% INJ-PF (5 MG/ML) 50 ML SDV SUBCUT PRN; RINGERS SOLUTION,LACTATED 1,000 ML IV PRN
[2017-05-06] MEDS: AZITHROMYCIN 500 MG in DEXTROSE 5%-WATER 250 ML IV PRN ×2 (06:44→07:20)
[2017-05-06] MEDS ORDERED: OXYTOCIN 10 UNIT/ML VIAL ONE (06:50)
[2017-05-06] MEDS ORDERED: ACETAMINOPHEN 100 ML IV ONE (06:51)
[2017-05-06] MEDS ORDERED: MIDAZOLAM 2 MG/2 ML INJ ONE (06:51)
[2017-05-06] MEDS ORDERED: ONDANSETRON HCL INJ/PF 4 MG/2 ML SDV ONE (06:51)
[2017-05-06] MEDS ORDERED: CITRIC ACID/SODIUM CITRATE ORAL SOLN 15 ML UDCUP ONE (06:51)
[2017-05-06] MEDS ORDERED: PHENYLEPHRINE HCL INJ/PF 10 MG/1 ML SDV ONE (06:51)
[2017-05-06] MEDS ORDERED: EPHEDRINE SULFATE INJ 50 MG/1 ML AMPULE ONE (06:51)
[2017-05-06] MEDS ORDERED: MORPHINE SULFATE 10 MG/ML INJ IV PRN (07:00)
[2017-05-06] MEDS ORDERED: FENTANYL CITRATE INJ/PF 100 MCG/2 ML AMPUL IV PRN ×3 (07:00)
[2017-05-06] MEDS ORDERED: PROMETHAZINE HCL INJ 25 MG/1 ML VIAL IV PRN (07:00)
[2017-05-06] MEDS ORDERED: DIPHENHYDRAMINE HCL 50 MG/ML VIAL IV PRN (07:00)
--- NOTE | 2017-05-06 08:19 | PDOC DELIVERY SUMMARY ---
Delivery Summary - Maternal Hx : III Hx # Term Pregnancies: 1 Hx Total # of Abortions (Sponateous & Elective): 1 DORETHA: 05/12/17 Gestational Age: 39.1 Ruptured Membranes: AROM Time of Rupture: 07:55 Fluids: Clear - Delivery Presentation: Vertex Heart Rate Monitoring: Done Pre-Operatively Support Person Present: Yes Location: OR : Scheduled Placenta: Within Normal Limits Delivery of Placenta Date: 05/06/17 Delivery of Placenta Time: 07:56 - Medications Type of Anesthesia:: Spinal - Assess and Care Baby 1 Female Delivery of Infant Date: 05/06/17 Delivery of Infant Time: 07:56 at 1 minute: 9 at 5 minutes: 9 Preprinted Number On Band: [id number] Skin to Skin: Yes Skin to Skin (Mins): 5 To Nursery At: 08:03 Mode of Transport: Bassinet Delivery Weight: 2,680 Infant Delivery Length: 19 in - Delivery Personnel Tumbler Tender: DR OSMAN Wellington RN: AUGIE ALONZO RN: KATIE VIDALES MD: KRISTA DARDEN
[2017-05-06] MEDS ORDERED: PROPOFOL INJ 200 MG/20 ML VIAL IV ONE (08:33)
--- NOTE | 2017-05-06 08:33 | OPERATIVE REPORT E ---
Operative Report NAME: JOHN LOZANO : 1980 AGE: 36Y DATE OF SURGERY: 05/06/2017 ROOM: 227 PREOPERATIVE DIAGNOSES: 1. IUP at term. 2. Repeat section. POSTOPERATIVE DIAGNOSES: 1. IUP at term. 2. Repeat section. PROCEDURE: Repeat low transverse section. Delivery of viable female. Apgars of 9 and 9, weight 5 pounds 14 ounces. SURGEON: Haley DARDEN M.D. ESTIMATED BLOOD LOSS: Less than 600 mL. TISSUE REMOVED OR ALTERED: Placenta. ANESTHESIA: Spinal. DESCRIPTION OF PROCEDURE: The patient was placed in supine position and rolled on her right side, prepped and draped in sterile fashion. Pfannenstiel incision was made through an existing Pfannenstiel eschar and excision extended through the subcutaneous tissue and fascia sharply divided. Rectus muscle was bluntly and sharply divided. Prior to that, peritoneum was entered with sharp dissection. Uterus was nicked in the midline and extended bilaterally. Infant was then delivered through abdominal incision. Nose and mouth suctioned with bulb syringe. Cord was clamped and infant was passed from the table. The placenta was manually extracted. The uterus closed in 2 layers with first a running stitch of 0 Vicryl, a second had a Lembert stitch of 0 Vicryl imbricating the first layer. Hemostasis was noted. Fascia closed with 0 Vicryl in a running fashion and skin was closed subcu with 4-0 Vicryl. Patient's urine remained clear throughout the procedure. She was taken to recovery room in good condition and the infant in nursery in good condition. DICTATING PHYSICIAN: Haley DARDEN M.D. [id number] PHY#: [id number] ID: [id number] JOB#: [id number] ACCT: [id number] cc:Haley DARDEN M.D. >
[2017-05-06] MEDS ORDERED: RINGERS SOLUTION,LACTATED 0 ML IV ONE (08:46)
[2017-05-06] MEDS: FENTANYL CITRATE INJ/PF 100 MCG/2 ML AMPUL ONE ×2 (08:50→08:55)
[2017-05-06] MEDS: MORPHINE SULFATE 10 MG/ML INJ ONE ×4 (09:20→09:35)
[2017-05-06] MEDS ORDERED: MORPHINE SULFATE 10 MG/ML INJ ONE (09:56)
[2017-05-06] MEDS ORDERED: OXYTOCIN/NORMAL SALINE 20 UNIT/1,000 ML RTUINJ INJ PRN (10:19)
[2017-05-06] MEDS ORDERED: DEXTROSE 5%-LACTATED RINGERS 1,000 ML IV PRN (10:22)
[2017-05-06] MEDS ORDERED: MEASLES,MUMPS&RUBELLA VACC/PF 0.5 ML VIAL SUBCUT PRN (10:30)
[2017-05-06] MEDS ORDERED: PROMETHAZINE HCL INJ 25 MG/1 ML VIAL IM PRN (10:30)
[2017-05-06] MEDS ORDERED: ACETAMINOPHEN 325 MG TABLET PO PRN (10:30)
[2017-05-06] MEDS ORDERED: DIPH/PERTUSS(ACELL)/TETANUS VAC/PF 0.5 ML SYR (>=10YO) IM PRN (10:30)
[2017-05-06] MEDS ORDERED: OXYCODONE-ACETAMINOPHEN 5-325 MG TABLET PO PRN (10:30)
[2017-05-06] MEDS: HYDROMORPHONE HCL INJ/PF 2 MG/ML AMPULE IV PRN (12:55)
[2017-05-06] MEDS: OXYCODONE-ACETAMINOPHEN 5-325 MG TABLET PO PRN ×2 (16:31→20:45)
[2017-05-06] MEDS: DOCUSATE SODIUM 100 MG CAPSULE PO SCH (17:52)
[2017-05-07] MEDS: OXYCODONE-ACETAMINOPHEN 5-325 MG TABLET PO PRN ×5 (00:42→19:54)
[2017-05-07] MEDS: SIMETHICONE 80 MG TAB.CHEW PO PRN ×2 (01:59→10:47)
[2017-05-07] MEDS: HYDROMORPHONE HCL INJ/PF 2 MG/ML AMPULE IV PRN (01:59)
[2017-05-07 06:01] LABS: HEMATOCRIT 36.3 % (36.0-47.0); HEMOGLOBIN 11.9 g/dL (12.0-15.5); MEAN CORPUSCULAR HEMOGLOBIN 28.8 pg (27.0-33.4); MEAN CORPUSCULAR HGB CONC 32.8 g/dL (32.0-36.0); MEAN CORPUSCULAR VOLUME 88 fl (80-97); PLATELET COUNT 295 10^3/uL (150-450); RED BLOOD COUNT 4.14 10^6/uL (3.72-5.28); RED CELL DISTRIBUTION WIDTH 13.6 % (11.5-14.0); WHITE BLOOD COUNT 17.6 10^3/uL (4.0-10.5)
[2017-05-07] MEDS: PRENATAL VITAMIN W DHA CAPSULE PO SCH (10:43)
[2017-05-07] MEDS: DOCUSATE SODIUM 100 MG CAPSULE PO SCH ×2 (10:43→18:39)
[2017-05-07] MEDS: IBUPROFEN 800 MG TABLET PO SCH ×2 (11:32→18:38)
--- NOTE | 2017-05-07 17:00 | PDOC PROGRESS REPORT ---
Subjective-OB Subjective: Post Delivery Day: 36 year old. Denies any needs at this time. without problems, tolerating diet, voiding and passing gas, bleeding slowing and pain controlled with current meds. Physical Exam (OB) Vital Signs: Temp Pulse Resp BP Pulse Ox 98.0 F 77 17 100/50 L 99 05/07/17 15:43 05/07/17 15:43 05/07/17 15:43 05/07/17 15:43 05/07/17 15:43 Intake & Output 05/06/17 05/07/17 05/08/17 06:59 06:59 06:59 Intake Total 5170 Output Total 4550 Balance 620 Weight 67.3 kg - PIH/Pre-Eclampsia Headache: Absent - Dressing Removed: Yes Incision: Well Approximated Closure Type: scant blood, incision dry - Abdomen Description: Soft, Flat Hernia Present: No Fundal Description: Firm, Midline Fundal Height: u/u - u/2 - Abdominal Tenderness: Nontender - Extremities Lower extremities: Tao's sign - neg Calf: Normal, Nontender Objective-Diagnostic Laboratory: 05/07/17 05:44 05/07/17 05:44 WBC 17.6 H RBC 4.14 Hgb 11.9 L Hct 36.3 MCV 88 MCH 28.8 MCHC 32.8 RDW 13.6 Plt Count 295 Assessment and Plan(PN) - Assessment and Plan (1) delivery delivered Is this a current diagnosis for this admission?: Yes - Time Spent with Patient Time with patient: Less than 15 minutes Medications reviewed and adjusted accordingly: Yes - Disposition Anticipated Discharge: Home Within: within 24 hours
[2017-05-08] MEDS: IBUPROFEN 800 MG TABLET PO SCH ×3 (00:32→12:33)
[2017-05-08] MEDS: OXYCODONE-ACETAMINOPHEN 5-325 MG TABLET PO PRN (04:25)
[2017-05-08] MEDS: PRENATAL VITAMIN W DHA CAPSULE PO SCH (09:50)
[2017-05-08] MEDS: DOCUSATE SODIUM 100 MG CAPSULE PO SCH (09:50)
--- NOTE | 2017-05-08 13:35 | PDOC DISCHARGE SUMMARY ---
Final Diagnosis Discharge Date: 05/08/17 - Final Diagnosis (1) Status post repeat low transverse section Is this a current diagnosis for this admission?: Yes Discharge Data - Discharge Medication Prescriptions: Oxycodone HCl/Acetaminophen [Percocet 5-325 mg Tablet] 2 tab PO Q4HP PRN #20 tablet PRN Reason: Ibuprofen [Motrin 800 mg Tablet] 800 mg PO Q8HP PRN #60 tablet PRN Reason: Docusate Sodium [Colace 100 mg Capsule] 100 mg PO BID #60 capsule Home Medications: No122/Iron/Folic Acid [ Multi Tablet] 1 tab PO DAILY 10/20/16 Lansoprazole [Prevacid] 30 mg PO DAILY 04/07/17 Zolpidem Tartrate [Ambien] 1 tab PO DAILY 04/27/17 B12 1 tab PO DAILY 05/05/17 Docusate Sodium [Colace 100 mg Capsule] 100 mg PO BID #60 capsule 05/08/17 Ibuprofen [Motrin 800 mg Tablet] 800 mg PO Q8HP PRN #60 tablet 05/08/17 Oxycodone HCl/Acetaminophen [Percocet 5-325 mg Tablet] 2 tab PO Q4HP PRN #20 tablet 05/08/17 Reason(s) for Admission: Ceasarean Section-Repeat Procedures: Ultrasound Intrapartum Procedure(s): : Low Cervical, Transverse - Diagnosis Test Laboratory: Temp Pulse Resp BP Pulse Ox 98.0 F 79 16 103/48 L 100 05/08/17 09:39 05/08/17 09:39 05/08/17 09:39 05/08/17 09:39 05/08/17 09:39 05/05/17 05/05/17 05/07/17 10:25 10:28 05:44 RBC 4.35 4.14 Hgb 12.6 11.9 L Hct 38.1 36.3 Urine Opiates Screen NEGATIVE - Discharge information/Instructions Discharge Activity: Activity As Tolerated, Balance Activity w/Rest, No Driving, No Lifting Over 10 Pounds, No Lifting/Push/Pulling, Pelvic Rest, Slowly Increase Activity, No tub bath, Walk Frequently Discharge Diet: As Tolerated, Regular Disposition: HOME, SELF-CARE Follow up with: [facility] in: 1, Weeks - incision check
[2017-05-08 13:51] VITALS: BP 103/48
== END 2017-05-08 15:27 | disposition home or self-care (01) | DRG 766 ==
LOC: 2S 05:06
PROVIDERS: ADMIT Obstetrics & Gynecology Gynecology; ATTEND Obstetrics & Gynecology Gynecology
PROC: 10D00Z1 Extraction of Products of Conception, Low, Open Approach (ICD-10-PCS; principal; 2017-05-06 07:45)
DX: O34.211 Maternal care for low transverse scar from previous cesarean delivery (principal); Z3A.39 39 weeks gestation of pregnancy; Z37.0 Single live birth
CPT/HCPCS: 1961; 36415; 59025; 80307; 81001; 85025; 85027; 86850; 86900; 86901; 94799; J0131; J0456; J0690; J1170; J2250; J2270; J2370; J2405; J2590; J2704; J3010; J3490; J7060; J7120

== ENCOUNTER 2017-10-06 09:40 | Emergency (ER) | payer BC ==
[2017-10-06 09:46] VITALS: BP 139/95
== END 2017-10-06 11:53 | disposition left against medical advice (07) ==
LOC: ER 09:40
DX: Z53.21 Procedure and treatment not carried out due to patient leaving prior to being seen by health care provider (principal)